=== PATIENT | female | born 1980 | race African-American/Black ===

== ENCOUNTER 2016-08-06 08:36 | Inpatient (IN) ==
[2016-08-06] MEDS ORDERED: BUTORPHANOL 2 MG/ML VIAL IV PRN (08:39)
[2016-08-06] MEDS ORDERED: ONDANSETRON 4 MG/2 ML VIAL IV PRN ×2 (08:39→10:03)
[2016-08-06] MEDS ORDERED: MEPERIDINE 50 MG/1 ML VIAL IV PRN (08:39)
[2016-08-06] MEDS ORDERED: LIDOCAINE 1% 50 ML VIAL ONE (08:41)
[2016-08-06] MEDS ORDERED: SODIUM CHLORIDE 0.9% 100 ML IV ONE (08:41)
[2016-08-06] MEDS ORDERED: AMPICILLIN 2,000 MG VIAL ONE (08:41)
[2016-08-06] MEDS ORDERED: BUTORPHANOL 1 MG/ML VIAL ONE (08:41)
[2016-08-06] MEDS ORDERED: miSOPROStol 200 MCG TABLET ONE (08:41)
[2016-08-06] MEDS ORDERED: OXYTOCIN/LR 20 UNIT/1,000 ML BAG IV ONE ×2 (08:42→10:03)
[2016-08-06] MEDS ORDERED: BUTORPHANOL 1 MG/ML VIAL IV ONE (08:55)
[2016-08-06 09:00] LABS: Basophils % 0.2 % (0.0-0.8); Eosinophils % 0.1 % (0.00-10.9); Hematocrit 40.2 VOL% (35.7-47.0); Hemoglobin 13.4 GM/DL (12.0-16.0); Immature Granulocytes % 0.5 %; Immature Granulocytes Absolute 0.05 #; Lymphocytes # 1.1 10*3/uL (1.4-4.0); Lymphocytes % 9.7 % (21.3-54.2); Mean Corpuscular HGB Conc 33.3 GM/DL (32-36); Mean Corpuscular Hemoglobin 25 PG (27-34); Mean Corpuscular Volume 73.6 FL (87-102); Mean Platelet Volume 11.1 FL (9.6-12.0); Monocytes # 0.5 10*3/uL (0.11-0.8); Monocytes % 4.3 % (1.7-12.7); Neutrophils # 9.3 10*3/uL (1.4-7.4); Neutrophils % 85.2 % (38.7-73.9); Platelet Count 200 T/CUMM (130-400); Red Blood Count 5.46 MC/CUMM (3.8-5.5); Red Cell Distribution Width 16.3 % (9.3-17.3); White Blood Count 10.9 T/CUMM (4-12)
[2016-08-06] MEDS ORDERED: LACTATED RINGERS 1,000 ML IV SCH (09:00)
[2016-08-06 09:41] LABS: Bilirubin,Total 0.4 MG/DL (0.2-1.0)
[2016-08-06 09:42] LABS: Osmolality,Calculated 273.7 MOS/KG (273-304); Potassium 3.9 MMOL/L (3.5-5.1); Total Protein 6.5 G/DL (6.4-8.3)
--- NOTE | 2016-08-06 09:48 | OB/GYN History & Physical ---
History of Present Illness Chief complaint: Active labor History of present illness: Ms. Sunshine is a 36 year old female 36-year-old female 2 para 1 who presents with active labor. Patient care has been through the [facility]. She is admitted to the hospital approximately 9 cm dilated with a bulging bag of water. Patient's past medical history is significant for questionable atrial fibrillation. Which she is not on any medication at the present time. She is asymptomatic, does not complain of shortness of breath chest pain or severe palpitations. Fetus is very active, no vaginal bleeding. Home Medications Medication Instructions Recorded Confirmed Type Multivitamin () [ 1 tablet PO DAILY 06/26/16 08/06/16 History Vitamin] Allergies Allergy/AdvReac Type Severity Reaction Status Date / Time No Known Allergies Allergy Verified 07/31/16 11:59 Medical,Surgical,& Family Hx - Medical History Cardio: History of: Cardiac Dysrhythmia (A-FIB) Reproductive: No history of: Ectopic , Complication - Family History Family History: Reports;: Family Heart Disease (DAD,PACEMAKER), Family Hypertension (SISTER) Denies;: Additional Family History - Social History Smoking Status: Never smoker Frequency of Alcohol Use: None Type of Drug Use: None 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 General appearance: mild distress - Antepartum / Post Antepartum Exam Cervix - Dilatation: 9 cm, 100% effaced, -1 station, bulging bag of water - Head Head exam: Present: normal inspection - Eye Eye exam: Present: EOMI Pupils: Present: LINN - ENT ENT exam: Present: normal exam - Neck Neck exam: Present: normal inspection - Respiratory Respiratory exam: Present: clear to auscultation bilaterally - Breast Breasts: as per HPI Menstruation: as per HPI - Cardiovascular Cardiovascular exam: Present: regular rate and rhythm - GI/Abdominal GI/Abdominal exam: Present: normal bowel sounds - Extremities Exam Extremities exam: Present: normal inspection - Back Exam Back exam: Present: normal inspection - Neurological Exam Neurological exam: Present: alert, oriented X3, normal gait - Psychiatric Psychiatric exam: Present: normal mood - Skin Skin exam: Present: normal color Assessment and Plan (1) Active labor Status: Acute Assessment and plan: Anticipate Current Visit: Yes Results - Labs CBC & BMP: 08/06/16 08:40 08/06/16 08:40
--- NOTE | 2016-08-06 09:52 | Event Note ---
Stage I Active labor 9 cm IV Stadol 1 mg IV Pitocin External monitoring category 1 heart tones Artificial rupture membranes clear fluid Stage II Vacuum extraction and a +2 station, 1 application, mother very uncomfortable noncooperative, no epidural anesthetic. Delivery at 9:28 AM Female, cord blood cord gas Apgars was 4, at 1 minute and 9 at 5 minutes Stage III 3 cord vessels Spontaneous labor placenta Estimated blood loss is 250 cc Mother stable nurses in attendance
[2016-08-06] MEDS ORDERED: ACETAMINOPHEN 325 MG TABLET PO PRN (10:03)
[2016-08-06] MEDS ORDERED: WITCH HAZEL PADS 100/JAR TOP PRN (10:03)
[2016-08-06] MEDS ORDERED: LANOLIN 50% CREAM 0.3 OZ TUBE TOP PRN (10:03)
[2016-08-06] MEDS ORDERED: RHO(D) IMMUNE GLOBULIN 300 MCG SYRINGE IM ONE (10:03)
[2016-08-06] MEDS ORDERED: BENZOCAINE 20%/MENTHOL 0.5% SPRAY 56 GM CAN TOP PRN (10:03)
[2016-08-06] MEDS ORDERED: DIPH/TET/ACEL PERT BOOSTER VACCINE 0.5 ML VIAL IM ONE (10:03)
[2016-08-06] MEDS ORDERED: oxyCODONE/ACETAMINOPHEN 5-325 MG TABLET PO PRN ×2 (10:03)
[2016-08-06] MEDS ORDERED: HYDROCORTISONE 2.5% RECTAL CREAM 30 GM TUBE TOP PRN (10:03)
[2016-08-06] MEDS ORDERED: BISACODYL 10 MG SUPP RECTAL PRN (10:03)
[2016-08-06] MEDS ORDERED: MEASLES/MUMPS/RUBELLA VACCINE 0.5 ML VIAL SUBCUT ONE (10:03)
[2016-08-06] MEDS ORDERED: IBUPROFEN 800 MG TABLET PO PRN (10:03)
[2016-08-06] MEDS ORDERED: PROMETHAZINE 25 MG/1 ML VIAL IM ONE (23:03)
[2016-08-06] MEDS ORDERED: MEPERIDINE 25 MG/1 ML VIAL IV PRN (23:04)
[2016-08-06] MEDS ORDERED: NIFEdipine 10 MG CAPSULE PO SCH (23:30)
[2016-08-06] MEDS: DOCUSATE SODIUM 100 MG CAPSULE PO SCH (23:44)
[2016-08-07 05:24] LABS: Basophils % 0.3 % (0.0-0.8); Eosinophils # 0.1 10*3/uL (0.0-0.87); Eosinophils % 0.8 % (0.00-10.9); Hematocrit 37.7 VOL% (35.7-47.0); Hemoglobin 12.4 GM/DL (12.0-16.0); Immature Granulocytes % 0.4 %; Immature Granulocytes Absolute 0.05 #; Lymphocytes # 2.7 10*3/uL (1.4-4.0); Lymphocytes % 22.5 % (21.3-54.2); Mean Corpuscular HGB Conc 32.9 GM/DL (32-36); Mean Corpuscular Hemoglobin 25 PG (27-34); Mean Corpuscular Volume 74.5 FL (87-102); Mean Platelet Volume 11.3 FL (9.6-12.0); Monocytes # 0.7 10*3/uL (0.11-0.8); Monocytes % 5.5 % (1.7-12.7); Neutrophils # 8.4 10*3/uL (1.4-7.4); Neutrophils % 70.5 % (38.7-73.9); Platelet Count 189 T/CUMM (130-400); Red Blood Count 5.06 MC/CUMM (3.8-5.5); Red Cell Distribution Width 16.6 % (9.3-17.3)
--- NOTE | 2016-08-07 08:35 | OB/GYN Progress Note ---
Assessment and Plan (1) examination following vaginal delivery Status: Acute Assessment and plan: Continue Routine PP management Anticipate discharge in the morning. 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 Patient reports voiding without difficulty and reports a stool since delivery. O- CVS-RRR, no murmur, Lungs-CTA bilaterally Breast are soft and nipples intact bilaterally Fundus firm 2 fbs below umbilicus Lochia- small amount of dark red rubra noted Extremities- + pedal pulses, no edema, negative sg's sign bilaterally H/H-12.4/37.7 A- PP day 1 status post P- Routine PP management anticipate discharge in am Exam CRANE SERVICE TECHNICIAN - Constitutional Vitals: Vital Signs Temp Pulse Resp BP Pulse Ox 08/07/16 04:00 97.1 F L 64 20 109/67 100 08/07/16 02:00 18 08/06/16 23:50 68 18 08/06/16 23:40 98.2 F 68 18 104/59 99 08/06/16 20:00 99.1 F 72 18 127/69 Results - Labs CBC & BMP: 08/07/16 05:02 08/06/16 08:40
[2016-08-07] MEDS: DOCUSATE SODIUM 100 MG CAPSULE PO SCH ×2 (08:36→21:12)
[2016-08-08 08:07] VITALS: BP 110/67
--- NOTE | 2016-08-08 08:39 | Discharge Summary ---
Hospital Course - Hospital Course Hospital Course: 08/08/2016 @ 0830am S- Patient rec'd sitting upright on the side of the bed eating breakfast. Patient reports normal bowel and bladder habits. Patient reports light bleeding. Patient states she is still uncertain about control O- CVS-RRR,no murmur, Lungs-CTA bilaterally Breast -soft and nipples intact bilaterally Fundus firm 2-3 fbs below umbilicus Lochia- small amount of dark red rubra noted Extremities-+ pedal pulses, no edema, negative sg's sign bilaterally A-PP day 2 status post P- Discharge home this am F/U in the clinic at [facility] in 2 weeks. Diagnosis - Discharge Diagnosis (1) examination following vaginal delivery Status: Resolved Discharge Plan - Discharge Data Disposition: Disch To Home/Self Care Condition at Discharge: Stable Discharge Diet: regular diet Activity: resume usual activities as tolerated Hygiene: may shower Weight Bearing at Discharge: weight bear as tolerated Driving: not until seen by doctor Contact your physician if you experience:: fever over 101, Difficulty voiding, Shortness of breath, pain uncontrolled by pain medications - Discharge Medications New Ibuprofen Tab [Motrin Tab] 800 mg PO Q6H PRN #90 tablet PRN Reason: Pain Moderate (4-7) Continue Multivitamin () [ Vitamin] 1 tablet PO DAILY - Follow Up or Referral Follow Up: Charline Urbina CNM [Advanced Practice Nurse] - - Forms/Instructions Additional Discharge Instructions: F/U in at [facility] with Jose BARKSDALE CNM in 2 weeks. Exam - Constitutional Vitals: Period Temp Pulse Resp BP Sys/Hillman Pulse Ox Last 24 Hr 97.5 F-98.5 F 66-78 16-20 110-126/67-77 96-99 General appearance: normal weight - Head Head exam: Present: normal inspection - Eye Eye exam: Present: EOMI Pupils: Present: LINN - ENT ENT exam: Present: normal exam - Neck Neck exam: Present: normal inspection - Respiratory Respiratory exam: Present: clear to auscultation bilaterally - Cardiovascular Cardiovascular exam: Present: regular rate and rhythm - GI/Abdominal GI/Abdominal exam: Present: normal bowel sounds, distended - Extremities Exam Extremities exam: Present: normal inspection - Back Exam Back exam: Present: normal inspection - Neurological Exam Neurological exam: Present: alert, oriented X3, normal gait - Psychiatric Psychiatric exam: Present: normal affect, normal mood - Skin Skin exam: Present: normal color, warm, dry Discharge Results Labs on day of discharge: Labs from last 24 hours 08/07/16 Unknown Rubella IgG Antibody 76.2 DS: Provider Date of admission: 08/06/16 08:39 Primary care physician: . No PCP Attending physician on admission: Jess Paul MD Consults: 08/06/16 10:03 Consult to Harvester Operator [CONS] Routine Consult Harvester Operator: Breast Feeding Discharging clinician: Jasen Pino
[2016-08-08] MEDS: DOCUSATE SODIUM 100 MG CAPSULE PO SCH (09:35)
--- NOTE | 2016-08-09 16:38 | Physician Query Form ---
CLICK EDIT DOCUMENT TO SELECT QUERY ANSWER --> OK --> SIGN Natalie Matthew RN Clinical Visual And Stock Associate W) [phone] (f) [phone] [email or web address]: Make your selection(s) from the choices in EACH section by typing an "x" and enter comments in the comment section. Please use your independent medical judgment in providing your response. This request does not imply that any particular answer is desired or expected. CLINICAL INDICATORS: (Providers should not edit this section) Based on documentation of "Vacuum extraction and a +2 station, 1 application, mother very uncomfortable noncooperative, no epidural anesthetic." Please clarify the reason for use of Vacuum Extraction Based on the above, could you clarify the appropriate diagnosis, if significant , that supports the above abnormalities and additional evaluation, monitoring, and/or treatment rendered: ( ) distress ( ) Maternal exhaustion ( ) Labor complications ( ) Attempted for failed delivery ( ) Other, please specify: ( ) Clinically unable to determine COMMENTS: PLEASE ALSO DOCUMENT RESPONSE IN PROGRESS NOTES AND/OR DISCHARGE SUMMARY Use of terms such as suspected, likely, or probable (associated with a specific diagnosis that is being evaluated, monitored, or treated as if it exists) are acceptable and can be restated in the discharge summary if not ruled out. MTDD
== END 2016-08-08 14:15 | disposition home or self-care (01) | DRG 560 ==
LOC: N.LD 08:36 → N.OB 08-07 07:17
PROVIDERS: ADMIT Obstetrics & Gynecology; ATTEND Obstetrics & Gynecology

== ENCOUNTER 2020-07-05 00:14 | Inpatient (IN) ==
[2020-07-05] MEDS ORDERED: BUTORPHANOL 2 MG/ML VIAL IV PRN (01:04)
[2020-07-05] MEDS ORDERED: LACTATED RINGERS 500 ML IV PRN (01:04)
[2020-07-05] MEDS ORDERED: ONDANSETRON 4 MG/2 ML VIAL IV PRN ×2 (01:04→16:32)
[2020-07-05] MEDS ORDERED: MEPERIDINE 50 MG/1 ML VIAL IV PRN (01:04)
[2020-07-05] MEDS ORDERED: AMPICILLIN INJ 2,000 MG in SODIUM CHLORIDE 0.9% 100 ML IV ONE (01:06)
[2020-07-05 01:27] LABS: Basophils % 0.2 % (0.0-0.8); Eosinophils # 0.1 10*3/uL (0.0-0.87); Eosinophils % 1.1 % (0.00-10.9); Hematocrit 39.9 VOL% (35.7-47.0); Hemoglobin 12.5 GM/DL (12.0-16.0); Immature Granulocytes % 0.6 %; Immature Granulocytes Absolute 0.03 #; Lymphocytes # 1.4 10*3/uL (1.4-4.0); Mean Corpuscular HGB Conc 31.3 GM/DL (32-36); Mean Corpuscular Volume 76.1 FL (87-102); Mean Platelet Volume 10.6 FL (9.6-12.0); Neutrophils % 61.1 % (38.7-73.9); Platelet Count 176 T/CUMM (130-400); Red Blood Count 5.24 MC/CUMM (3.8-5.5); White Blood Count 5.3 T/CUMM (4-12)
[2020-07-05 01:49] LABS: Albumin 2.6 G/DL (3.4-5.0); Bilirubin,Total 0.4 MG/DL (0.2-1.0); Osmolality,Calculated 276.4 MOS/KG (273-304); Potassium 3.9 MMOL/L (3.5-5.1); Total Protein 6.5 G/DL (6.4-8.2)
[2020-07-05] MEDS: OXYTOCIN/LR 20 UNIT/1,000 ML BAG IV SCH ×2 (04:58→14:41)
[2020-07-05] MEDS: LACTATED RINGERS 1,000 ML IV SCH ×3 (04:58→09:30)
[2020-07-05] MEDS ORDERED: AMPICILLIN INJ 1,000 MG in SODIUM CHLORIDE 0.9% 100 ML IV SCH (05:30)
[2020-07-05] MEDS ORDERED: diphenhydrAMINE 50 MG/1 ML VIAL IV PRN (07:24)
[2020-07-05] MEDS ORDERED: CITRIC ACID/SODIUM CITRATE 30 ML UDCUP PO ONE (07:24)
[2020-07-05] MEDS ORDERED: hydrOXYzine HCL 25 MG/1 ML VIAL IM PRN (07:24)
[2020-07-05] MEDS ORDERED: PROMETHAZINE 25 MG/1 ML VIAL IM PRN (07:24)
[2020-07-05] MEDS ORDERED: ePHEDrine 50 MG/ML VIAL IV PRN (07:24)
[2020-07-05] MEDS ORDERED: NALOXONE 0.4 MG/ML VIAL IV PRN (07:24)
[2020-07-05] MEDS ORDERED: FAMOTIDINE 20 MG/2 ML VIAL IV ONE (07:24)
[2020-07-05] MEDS ORDERED: fentaNYL 2 MCG/ROPIV 0.2% EPID 100 ML EPIDURAL SCH (07:30)
[2020-07-05 11:26] LABS: Bilirubin,Urine Negative (Negative); Blood, Urine Negative (Negative); Glucose,Urine (UA) Negative (Negative); Ketones,Urine 5 mg/dL (Negative); Mucus,Urine Occasional /LPF (Occasional); Nitrite,Urine Negative (Negative); Protein,Urine Negative; RBC,Urine 1 /HPF (0-4); Urine Appearance CLEAR (Clear); Urine Color Straw (Yellow); Urine Specific Gravity 1.008 (1.001-1.035); Urine Urobilinogen < 2.0 EU/DL (0.2-1.0)
[2020-07-05] MEDS ORDERED: miSOPROStoL 200 MCG TABLET ONE (11:30)
[2020-07-05] MEDS ORDERED: TRANEXAMIC ACID 1,000 MG/10 ML VIAL ONE (11:30)
[2020-07-05] MEDS ORDERED: CARBOPROST TROMETHAMINE 250 MCG/ML AMP IM ONE (11:31)
[2020-07-05] MEDS ORDERED: METHYLERGONOVINE 0.2 MG/1 ML AMP ONE (11:31)
[2020-07-05 12:52] LABS: Cord Venous Blood HCO3 22.4 MMOL/L; Cord Venous Blood PCO2 47.1 MMHG; Cord Venous Blood PO2 37.9 MMHG
[2020-07-05] MEDS ORDERED: MAGNESIUM HYDROXIDE SUSP 30 ML UDCUP PO PRN (16:32)
[2020-07-05] MEDS ORDERED: ACETAMINOPHEN 500 MG TABLET PO PRN (16:32)
[2020-07-05] MEDS ORDERED: BISACODYL 10 MG SUPP RECTAL PRN (16:32)
[2020-07-05] MEDS ORDERED: LACTATED RINGERS 1,000 ML IV SCH (17:00)
[2020-07-05] MEDS: IBUPROFEN 800 MG TABLET PO PRN (17:10)
[2020-07-05] MEDS: DOCUSATE SODIUM 100 MG CAPSULE PO SCH (20:34)
[2020-07-06] MEDS: IBUPROFEN 800 MG TABLET PO PRN ×2 (02:55→22:29)
[2020-07-06 05:22] LABS: Basophils % 0.3 % (0.0-0.8); Eosinophils # 0.1 10*3/uL (0.0-0.87); Eosinophils % 1.3 % (0.00-10.9); Hematocrit 33.8 VOL% (35.7-47.0); Hemoglobin 11.1 GM/DL (12.0-16.0); Immature Granulocytes % 0.5 %; Immature Granulocytes Absolute 0.04 #; Lymphocytes # 1.5 10*3/uL (1.4-4.0); Lymphocytes % 19.3 % (21.3-54.2); Mean Corpuscular HGB Conc 32.8 GM/DL (32-36); Monocytes % 6.8 % (1.7-12.7); Neutrophils % 71.8 % (38.7-73.9); Platelet Count 147 T/CUMM (130-400); Red Blood Count 4.57 MC/CUMM (3.8-5.5); Red Cell Distribution Width 16.9 % (9.3-17.3); White Blood Count 7.9 T/CUMM (4-12)
[2020-07-06] MEDS: ASPIRIN CHEW 81 MG TABLET PO SCH (09:53)
[2020-07-06] MEDS: MULTIVITAMIN (PRENATAL) TABLET PO SCH (09:53)
[2020-07-06] MEDS: DOCUSATE SODIUM 100 MG CAPSULE PO SCH ×2 (09:53→21:21)
[2020-07-06] MEDS: valACYclovir 500 MG TABLET PO SCH (13:23)
[2020-07-07] MEDS: DOCUSATE SODIUM 100 MG CAPSULE PO SCH (08:42)
[2020-07-07] MEDS: valACYclovir 500 MG TABLET PO SCH (08:42)
[2020-07-07] MEDS: MULTIVITAMIN (PRENATAL) TABLET PO SCH (08:42)
[2020-07-07] MEDS: ASPIRIN CHEW 81 MG TABLET PO SCH (08:42)
[2020-07-07] MEDS: IBUPROFEN 800 MG TABLET PO PRN (08:45)
[2020-07-07 11:57] VITALS: BP 133/71
== END 2020-07-07 13:15 | disposition home or self-care (01) | DRG 560 ==
LOC: N.LDOUT 00:14 → N.LD 00:24 → N.OB 16:05
PROVIDERS: ADMIT Obstetrics & Gynecology; ATTEND Obstetrics & Gynecology